=== PATIENT | female | born 1960 | race Asian ===

== ENCOUNTER 2018-11-19 11:20 | Emergency (ER) | payer OTHER ==
[~2018-11-19] VITALS: Ht 160 cm; Wt 56.8 kg
[~2018-11-19 11:20] MED LIST: LORA1TAB PO; OMEP20CA16 PO; ONDA4TAB13 PO; TRIA0.2579 PO; ZOLP10TA PO
[2018-11-19 11:25] VITALS: Ht 160 cm; Wt 56.8 kg
--- NOTE | 2018-11-19 11:40 | ERD ---
ER Documentation Chief Complaint Chief Complaint ap x 3 days; constipation. n/v x 3 days; general body pains HPI 58-year-old female with a history of anxiety presents to the ED with family complaining of a 3-day history of severe, crampy, generalized, not rating abdominal pain with nausea, alternating, constipation with multiple episodes of nonbloody nonbilious emesis and nonbloody, non-mucoid diarrhea. As per family patient is experiencing these symptoms several times a year over the last several years and has had multiple work-ups without a specific diagnosis being established. Denies recent travel, ill contacts or spoiled food exposure. No relieving or exacerbating factors. No dysuria, polyuria, hematuria or flank pain. Denies chest pain, palpitations or shortness of breath. Complains of anxiety and spasms of the hands. No fevers or chills. ROS All systems reviewed and are negative except as per history of present illness. Medications Home Meds Reported Medications Ondansetron Hcl* (Zofran*) 4 Mg Tab, 4 MG PO NEEDED PRN for NAUSEA AND OR VOMITING, TAB 11/19/18 Omeprazole* (Omeprazole*) 20 Mg Capsule.dr, 20 MG PO DAILY, #30 CAP 11/19/18 Lorazepam* (Lorazepam*) 1 Mg Tablet, 1 MG PO BID PRN for ANXIETY, #30 TAB 11/19/18 Zolpidem Tartrate* (Ambien*) 10 Mg Tablet, 10 MG PO QHS PRN for INSOMNIA, TAB 11/19/18 Triazolam* (Triazolam*) 0.25 Mg Tablet, 0.25 MG PO HS PRN for INSOMNIA, TAB 11/19/18 Allergies Allergies: Coded Allergies: No Known Allergy (Unverified , 11/19/18) PMhx/Soc Reviewed in chart. As per HPI. History of Surgery: No Anesthesia Reaction: No Hx Neurological Disorder: No Hx Respiratory Disorders: No Hx Cardiac Disorders: No Hx Psychiatric Problems: Yes (Anxiety) Hx Miscellaneous Medical Probl: Yes (Recurrent abdominal pain) Hx Alcohol Use: No Hx Substance Use: No FmHx No stroke or cancer Physical Exam Vitals Temp: 99.1. Respiration: 22. Pulse: 81. Blood pressure: 105/77. O2 saturation 99%. Physical Exam Const: Ill-appearing, anxious, moderate to severe distress. Head: Atraumatic Eyes: Pupils equal reactive to light, extraocular movements are intact. Normal Conjunctiva ENT: Normal External Ears, Nose and Mouth. Neck: Full range of motion. Nontender. No meningismus. Resp: Breath sounds are equal and clear to auscultation bilaterally Cardio: Regular rate and rhythm, no murmurs Abd: Soft, mild, generalized tenderness. No rebound or guarding. No masses. Skin: No petechiae or rashes Back: No midline or flank tenderness Ext: No cyanosis, or edema. Carpopedal spasm. Neur: Awake and alert. No focal deficit observed. Psych: Extremely anxious but not depressed. Results 24 hrs Laboratory Tests Test 11/19/18 12:03 11/19/18 12:04 Urine Color STRAW Urine Clarity CLEAR Urine pH 7.0 Urine Specific [place] 1.001 Urine Ketones 1+ mg/dL Urine Nitrite NEGATIVE mg/dL Urine Bilirubin NEGATIVE mg/dL Urine Urobilinogen NEGATIVE mg/dL Urine Leukocyte Esterase NEGATIVE Lilo/ul Urine Microscopic RBC 0 /HPF Urine Microscopic WBC 0 /HPF Urine Hemoglobin 1+ mg/dL Urine Glucose NEGATIVE mg/dL Urine Total Protein NEGATIVE mg/dl White Blood Count 7.9 10^3/ul Red Blood Count 4.98 10^6/ul Hemoglobin 14.3 g/dl Hematocrit 41.6 % Mean Corpuscular Volume 83.5 fl Mean Corpuscular Hemoglobin 28.7 pg Mean Corpuscular Hemoglobin Concent 34.4 g/dl Red Cell Distribution Width 14.1 % Platelet Count 319 10^3/UL Mean Platelet Volume 7.9 fl Immature Granulocytes % 0.500 % Neutrophils % 56.9 % Lymphocytes % 35.6 % Monocytes % 6.5 % Eosinophils % 0.0 % Basophils % 0.5 % Nucleated Red Blood Cells % 0.0 /100WBC Immature Granulocytes # 0.040 10^3/ul Neutrophils # 4.5 10^3/ul Lymphocytes # 2.8 10^3/ul Monocytes # 0.5 10^3/ul Eosinophils # 0.0 10^3/ul Basophils # 0.0 10^3/ul Nucleated Red Blood Cells # 0.0 10^3/ul Sodium Level 134 mmol/L Potassium Level 2.9 mmol/L Chloride Level 95 mmol/L Carbon Dioxide Level 27 mmol/L Anion Gap 12 Blood Urea Nitrogen 5 mg/dl Creatinine 0.65 mg/dl Est Glomerular Filtrat Rate mL/min > 60 mL/min Glucose Level 113 mg/dl Calcium Level 9.4 mg/dl Total Bilirubin 0.8 mg/dl Direct Bilirubin 0.00 mg/dl Indirect Bilirubin 0.8 mg/dl Aspartate Amino Transf (AST/SGOT) 27 IU/L Alanine Aminotransferase (ALT/SGPT) 12 IU/L Alkaline Phosphatase 78 IU/L Troponin I < 0.012 ng/ml Total Protein 7.0 g/dl Albumin 4.2 g/dl Globulin 2.80 g/dl Albumin/Globulin Ratio 1.50 Lipase 111 U/L Current Medications Medications Dose Sig/Palak Start Time Status Last (Trade) Ordered Route PRN Stop Time Admin Dose Reason Admin Sodium 1,000 ml @ Q1H STAT 11/19/18 DC 11/19/18 Chloride 1,000 mls/hr IV 11:49 11/19/18 12:10 12:48 Ondansetron 4 mg ONCE STAT 11/19/18 DC 11/19/18 HCl (Zofran IV 11:49 11/19/18 12:10 Inj) 11:53 Famotidine 20 mg ONCE STAT 11/19/18 DC 11/19/18 (Pepcid Iv) IV 11:49 11/19/18 12:10 11:53 Lorazepam 1 mg ONCE ONCE 11/19/18 DC 11/19/18 (Ativan) IV 12:00 11/19/18 12:10 12:01 Lorazepam 1 mg ONCE ONCE 11/19/18 DC 11/19/18 (Ativan) IV 12:30 11/19/18 12:32 12:31 Potassium 40 meq ONCE ONCE 11/19/18 DC 11/19/18 Chloride PO 13:00 11/19/18 12:57 (Potassium 13:01 Chloride Pwd/Soln) IV Flush 10 ml STK-MED 11/19/18 DC 11/19/18 (NS 10 ml) ONCE .ROUTE 12:49 11/19/18 13:34 12:50 Sodium 100 ml @ ud STK-MED 11/19/18 DC 11/19/18 Chloride ONCE .ROUTE 12:49 11/19/18 13:35 12:50 Iohexol 150 ml STK-MED 11/19/18 DC 11/19/18 (Omnipaque ONCE .ROUTE 12:49 11/19/18 13:35 300mg/ ml) 12:50 Morphine 4 mg ONCE STAT 11/19/18 DC 11/19/18 Sulfate IV 13:05 11/19/18 13:15 (morphine) 13:06 Potassium 40 meq ONCE ONCE 11/19/18 DC 11/19/18 Chloride PO 14:30 11/19/18 15:13 (Potassium 14:31 Chloride Pwd/Soln) Procedures/MDM DOCUMENTS REVIEWED: ED nurse, no prior records EKG: Time: 1342 sinus rhythm. Ventricular rate 60. Prolonged CA interval of 245 ms consistent with first-degree AV block. Prolonged QT interval. No acute ST segment elevation depression. No ectopy. My Interpretation IMAGING: PROCEDURE: XR Chest. CLINICAL INDICATION: Shortness of breath. TECHNIQUE: Single frontal view. COMPARISON: None. FINDINGS: There is right lung base patchy consolidation. Left lung base atelectasis versus scarring. There is a 1.2 cm opacity overlying the right lung base. The heart size is normal. There is a tortuous calcified thoracic aorta. There is no pleural effusion. There is no pneumothorax. IMPRESSION: There is right lung base patchy consolidation. Left lung base atelectasis versus scarring. There is a 1.2 cm opacity overlying the right lung base. Follow-up to resolution to exclude underlying neoplasm. RPTAT: QQ Physician Rupesh Date Time Electronically viewed and signed by Physician Rupesh on 11/19/2018 12:46 RD/ AMENDMENT: 11/19/2018 2:23:05 PM Evette Suresh call for review of the x-ray. Low lung volumes are observed. Minimal mild basilar atelectatic changes are observed and confirmed when correlated with current CT abdomen/pelvis. There is no airspace disease to suggest pneumonia. The nodular density of the right lung base corresponds to a nipple shadow. PROCEDURE: CT Abdomen and Pelvis With Intravenous Contrast CLINICAL INDICATION: Abdominal pain. TECHNIQUE: Axial computed tomography images of the abdomen and pelvis with intravenous contrast. Sagittal and coronal reformatted images were created and reviewed. CTDIvol (mGy) = <7.05 mGy>; total DLP (mGy-cm) = <398.86 mGy.cm>. This CT exam was performed using one or more of the following dose reduction techniques: automated exposure control, adjustment of the mA and/or kV according to patient size, and/or use of iterative reconstruction technique. DICOM images are available. CONTRAST: 85 mL of Omnipaque-300 was administered intravenously. COMPARISON: None available. FINDINGS: LUNG BASES: Dependent change at the lung bases, which are otherwise clear. ABDOMEN: LIVER: Sub-centimeter hypodensities scattered throughout the liver that are too small to further characterize. Otherwise, unremarkable. GALLBLADDER AND BILE DUCTS: No intraluminal gallstones or findings to suggest cholecystitis. No biliary ductal dilatation or radiopaque stones within the biliary tree. PANCREAS: Normal pancreatic enhancement with no mass lesion or pancreatic ductal dilatation. SPLEEN: Normal splenic size with no focal lesion. ADRENALS: Unremarkable appearance of the adrenal glands. KIDNEYS AND URETERS: Mild left and mild to moderate right hydronephrosis and hydroureter with no urolithiasis or obstructing mass. STOMACH AND BOWEL: Wall thickening associated with luminal narrowing at the proximal ascending colon, greater than expected for a rugal fold contraction. Mild diffuse wall thickening of the colon, suggestive of underlying colitis. Diffuse liquid stool throughout the colon, consistent with diarrheal illness. No evidence of bowel obstruction. PELVIS: APPENDIX: Nondilated appendix with no findings to suggest appendicitis. BLADDER: Markedly distended urinary bladder. REPRODUCTIVE: Unremarkable appearance of the uterus. No adnexal masses. ABDOMEN and PELVIS: INTRAPERITONEAL SPACE: No free intraperitoneal air or free fluid. BONES/JOINTS: No concerning osseous lesions. SOFT TISSUES: Small fat containing umbilical hernia. VASCULATURE: Mild aortoiliac atherosclerotic disease. No aortic aneurysm. LYMPH NODES: No mesenteric or retroperitoneal adenopathy. IMPRESSION: 1. Mild to moderate right and mild left hydroureteronephrosis with a markedly distended urinary bladder, suggestive of a neurogenic bladder or bladder outlet obstruction. 2. Wall thickening associated with luminal narrowing at the proximal ascending colon, greater than expected for a rugal fold contraction. Underlying neoplasm could cause this appearance and correlation with colonoscopy is recommended. 3. Mild diffuse wall thickening of the colon, suggestive of underlying colitis. 4. Mild aortoiliac atherosclerotic disease. 5. Small fat containing umbilical hernia. 6. Diffuse liquid stool throughout the colon, consistent with diarrheal illness. RPTAT: RR Physician Juany Date Time Electronically viewed and signed by Physician Juany on 11/19/2018 13:40 LP/ Observation Note: Time: 4 hours Family Hx: No Hypertension Evaluation: Multiple exams showed ongoing symptoms, severe hyperkalemia with EKG changes and patient meets criteria for admission. MEDICAL DECISION MAKIN-year-old female with a history of anxiety presents to the ED with family complaining of a 3-day history of severe, crampy, gene ralized, not rating abdominal pain with nausea, alternating, constipation with multiple episodes of nonbloody nonbilious emesis and nonbloody, non-mucoid diarrhea. CBC to evaluate for leukocytosis, anemia and thrombocytopenia is unremarkable. Chemistry reveals significant hypokalemia but no renal insufficiency, hyperglycemia or other electrolyte abnormalities. Liver function tests are unremarkable for hyperbilirubinemia or transaminitis. Lipase is not elevated or consistent with pancreatitis. Urinalysis is negative. EKG significant for prolonged CA interval consistent with first-degree AV block and prolonged QT but no acute ischemic changes or dysrhythmia. Troponin is negative. Chest x-ray findings as above essentially unremarkable pneumonia, CHF or cavitary lesions. CT of the abdomen pelvis with findings as described. Subsequently reviewed with Dr. Evette Dumont and she agrees there is significant liquid stool consistent with diarrhea but no evidence of significant urinary obstruction or findings suggestive of neoplasm although this cannot be ruled out. Patient presents with severe, generalized abdominal pain of uncertain et iology. She seems to have the symptoms several times per year and they are accompanied by extreme anxiety. Irritable bowel syndrome and inflammatory bowel disease are considered. No evidence of cholecystitis, appendicitis, diverticulitis, abdominal aortic aneurysm or mesenteric ischemia. No rebound, guarding or signs of peritonitis. Symptoms decreased with multiple doses of in travenous benzodiazepines. Severe hypokalemia with EKG changes and replacement is initiated. According to patient's family symptoms are frequently accompanied by hypokalemia. Patient continues to be symptomatic and have significant EKG changes secondary to electrolyte abnormalities hence admission was recommended. Unfortunately the patient has made the decision to leave this Emergency Department and any ongoing care against the advice of the emergency physician. The patient and family have been informed of and verbalized understanding of the inherent risks of this decision, including and disability. The patient explained to me the reason for wanting to sign out against medical advice which was she has had the symptoms before and thinks they were resolved after a good night sleep. The patient was given alternative therapeutic options. The patient has the capacity to make this decision and accepts the responsibility of leaving at this time. The patient and all necessary parties have been advised that the patient may return at any time for further evaluation or treatment. The patient's condition at time of discharge is serious. Counseled patient and family regarding diagnostic workup, diagnosis and need for followup. Understands to return to ED if she changes her mind regarding admission or further treatment, symptoms recur, worsen or any other concerns. Departure Diagnosis: Primary Impression: Generalized abdominal pain Additional Impressions: Acute generalized abdominal pain Acute anxiety Hypokalemia Condition: Serious (Leaving AGAINST MEDICAL ADVICE) LYNN SURESH MD Nov 19, 2018 11:40
[2018-11-19] MEDS ORDERED: SOD CHLORIDE 0.9% 1,000 ML IV STA (11:49)
[2018-11-19] MEDS ORDERED: FAMOTIDINE 20 MG INJ IV STA (11:49)
[2018-11-19] MEDS ORDERED: ONDANSETRON 4 MG INJ IV STA (11:49)
[2018-11-19] MEDS ORDERED: LORAZEPAM 2 MG INJ IV ONE ×2 (12:00→12:30)
[2018-11-19] MEDS ORDERED: IOHEXOL 300MG/ML 150 ML BTL ONE (12:49)
[2018-11-19] MEDS ORDERED: SOD CHLORIDE 0.9% 100 ML ONE (12:49)
[2018-11-19] MEDS ORDERED: POTASSIUM CHLORIDE 20 MEQ POWDER FOR ORAL SOLN PO ONE ×2 (13:00→14:30)
[2018-11-19 13:05] VITALS: BP 112/70; PULSE 73; RESP 20
[2018-11-19] MEDS ORDERED: morphine 4 MG/ML VIAL IV STA (13:05)
== END 2018-11-19 15:42 | disposition left against medical advice (07) ==
LOC: E/R 11:20
DX: E87.6 Hypokalemia (principal); R10.84 Generalized abdominal pain; F41.9 Anxiety disorder, unspecified; R40.2252 Coma scale, best verbal response, oriented, at arrival to emergency department; R40.2142 Coma scale, eyes open, spontaneous, at arrival to emergency department; R40.2362 Coma scale, best motor response, obeys commands, at arrival to emergency department
CPT/HCPCS: 36415; 71045; 74177; 80053; 81001; 83690; 84484; 85025; 96374; 96375; J2060; J2270; J2405; J7030; Q9967; Z7502; Z7610; 93005